=== PATIENT | female | born 1985 | race Caucasian/White ===

== ENCOUNTER 2017-10-06 10:46 | Emergency (ER) | payer MEDICAID, OTHER, SELFPAY ==
[2017-10-06] MEDS ORDERED: Ondansetron HCl/PF 4 MG/2 ML Vial ONE (11:09)
[2017-10-06 11:17] LABS: #Lymphocytes 0.8 thou/uL (1.20-3.40); #Monocytes 0.5 thou/uL (0.11-0.59); #Neutrophils 13.1 thou/uL (1.40-6.50); %Basophils 0.3 % (0.0-1.0); %Eosinophils 0.2 % (0.0-10.0); %Lymphocytes 5.7 % (21.0-51.0); %Monocytes 3.5 % (0.0-10.0); %Neutrophils 90.4 % (42.0-75.0); Hemoglobin 11.5 g/dL (12.0-16.0); Mean Corpuscular HGB CONC 33.9 g/dL (32.0-36.0); Mean Corpuscular Hemoglobin 30.7 pg (27.0-31.0); Mean Corpuscular Volume 90.6 fl (81.0-99.0); Mean Platelet Volume 6.1 fL (7.4-10.4); Platelet Count 319 thou/uL (130-400); RBC Distribution Width 12.4 % (11.5-14.5); Red Blood Cell (RBC) Count 3.75 mill/uL (4.20-5.40); White Blood Cell (WBC) Count 14.5 thou/uL (4.8-10.8)
[2017-10-06 11:41] LABS: ALT (SGPT) 7 U/L (8-55); AST (SGOT) 14 U/L (5-34); Albumin 3.6 g/dL (3.5-5.0); Alkaline Phosphatase 137 U/L (40-150); Anion Gap 17 mmol/L (10-20); BUN (Urea Nitrogen) 9 mg/dL (7.0-18.7); Bilirubin, Total 0.4 mg/dL (0.2-1.2); Calc. Creatinine Clearance 0 mL/min (70-130); Calcium 8.5 mg/dL (7.8-10.44); Carbon Dioxide 20 mmol/L (22-29); Chloride 105 mmol/L (98-107); Estimated GFR-MDRD Greater than 90; Globulin 3.2 g/dL (2.4-3.5); Glucose 119 mg/dL (70-105); Lipase 18 U/L (8-78); Potassium 3.8 mmol/L (3.5-5.1); Protein, Total 6.8 g/dL (6.0-8.3); Sodium 138 mmol/L (136-145)
[2017-10-06 12:15] LABS: Bilirubin Small (Negative); Blood, Urine Negative (Negative); Clarity Clear (Clear); Glucose, Urine (Dipstick) Negative (Negative); Leukocyte Trace (Negative); Nitrite Negative (Negative); Protein, Urine (Dipstick) 30 mg/dL (Neg-Trace); Specific Gravity, Urine 1.025 (1.005-1.030)
[2017-10-06 12:17] LABS: Bacteria/HPF 1+ HPF (None Seen); RBC/HPF 0-3 HPF (0-3); Squamous Epithelial 0-3 HPF (0-3); WBC/HPF 0-3 HPF (0-3)
== END 2017-10-06 12:59 | disposition home or self-care (01) ==
LOC: BURERS 10:46
DX: O99.612 Diseases of the digestive system complicating pregnancy, second trimester (principal); A08.4 Viral intestinal infection, unspecified; O99.342 Other mental disorders complicating pregnancy, second trimester; F41.9 Anxiety disorder, unspecified; F32.9 Major depressive disorder, single episode, unspecified; O99.332 Smoking (tobacco) complicating pregnancy, second trimester; F17.210 Nicotine dependence, cigarettes, uncomplicated; O16.2 Unspecified maternal hypertension, second trimester; Z3A.27 27 weeks gestation of pregnancy
CPT/HCPCS: 80053; 81003; 81015; 83690; 85025; 94760; 96361; 96374; J2405